=== PATIENT | female | born 1960 | race Caucasian/White ===

== ENCOUNTER 2024-02-17 15:41 | Inpatient (IN) | payer MEDICAID ==
[~2024-02-17] VITALS: Ht 152.4 cm; Wt 79.5 kg
[2024-02-17 16:07] LABS: BASOPHILS # (AUTO) 0.1 X10'3 (0-0.2); BASOPHILS % (AUTO) 0.9 % (0-1); EOSINOPHILS # (AUTO) 0.5 X10'3 (0-0.9); EOSINOPHILS % (AUTO) 4.7 % (0-6); HEMATOCRIT 42.1 % (35.0-45.0); HEMOGLOBIN 13.9 g/dl (12.0-16.0); LYMPHOCYTES # (AUTO) 2.8 X10'3 (1.1-4.8); MEAN CORPUSCULAR HEMOGLOBIN 29.9 PG (27.0-31.0); MEAN CORPUSCULAR VOLUME 90.8 FL (78-98); MEAN PLATELET VOLUME 7.2 FL (7.4-10.4); MONOCYTES # (AUTO) 0.6 X10'3 (0-0.9); MONOCYTES % (AUTO) 5.6 % (2-12); NEUTROPHILS # (AUTO) 7.1 X10'3 (1.8-7.7); NEUTROPHILS % (AUTO) 63.8 % (42-75); PLATELET COUNT 397 X10'3 (140-440); RED BLOOD COUNT 4.64 X10'6 (4.20-5.60); RED CELL DISTRIBUTION WIDTH 14.7 % (11.5-14.5); WHITE BLOOD COUNT 11.2 X10'3 (4.5-11.0)
[2024-02-17 16:35] LABS: ALBUMIN 4.2 G/DL (3.4-5.0); ANION GAP 7 (8-16); BLOOD UREA NITROGEN 14 MG/DL (7-18); BUN/CREATININE RATIO 15.9 (10.0-20.0); CHLORIDE 102 MMOL/L (99-107); CREATININE 0.88 MG/DL (0.40-0.90); GLUCOSE 108 MG/DL (70-104); POTASSIUM 3.6 MMOL/L (3.5-5.1); PRO BRAIN NATRIURETIC PEPTIDE 310 PG/ML (0-125); SODIUM 139 MMOL/L (135-145); TOTAL CARBON DIOXIDE 29.6 MMOL/L (24-32); eCRCL 47 ML/MIN; eGFR 65 ML/MIN
[2024-02-17] MEDS: azithromycin 250mg tablet PO ONE (21:52)
[2024-02-17] MEDS: dexamethasone 4mg tablet PO ONE (21:52)
[2024-02-17 22:03] VITALS: PULSE 93; RESP 17; O2SAT 94
[2024-02-17] MEDS: ipratropium/albuterol 3ml nebule NEB ONE (22:03)
[2024-02-17 22:08] VITALS: PULSE 79; RESP 17; O2SAT 98
[2024-02-17 23:22] VITALS: PULSE 88; RESP 24; O2SAT 97
[2024-02-17] MEDS: albuterol 2.5 MG/3 ML nebule CONTNEB PRN (23:22)
[2024-02-18] VITALS (18 sets, daily range): BP systolic 130–155; BP diastolic 66–77; PULSE 80–129; RESP 12–29; TEMP 97.8–98.3; O2SAT 92–99
[2024-02-18] MEDS ORDERED: potassium Cl 40MEQ/1/2NS 520ml 520 ML IV PRN (01:50)
[2024-02-18] MEDS ORDERED: magnesium sulf-water 4G/100mL 100 ML IV PRN (01:50)
[2024-02-18] MEDS ORDERED: mag hydrox/Alum hydrox/simeth 30ml oral suspension PO PRN (01:50)
[2024-02-18] MEDS ORDERED: ondansetron/PF 4mg/2ml inj IV PRN (01:50)
[2024-02-18] MEDS ORDERED: HYDROcodone/acetaminophen 5mg/325mg tablet PO PRN (01:50)
[2024-02-18] MEDS ORDERED: magnesium sulf-water 2g/50mL 50 ML IV PRN (01:50)
[2024-02-18] MEDS ORDERED: magnesium hydroxide 30ml (MOM) UD suspension PO PRN (01:50)
[2024-02-18] MEDS ORDERED: potassium Cl 20 mEq SR tablet PO PRN ×2 (01:50)
[2024-02-18] MEDS ORDERED: acetaminophen 325mg tablet PO PRN (01:50)
[2024-02-18] MEDS ORDERED: magnesium Cl slow-release 64mg tablet PO PRN (01:50)
[2024-02-18] MEDS ORDERED: albuterol 1.25 MG/3 ML (1/2 strength) nebule NEB PRN (01:55)
[2024-02-18] MEDS: LORazepam 2 mg/ml vial IV ONE (02:03)
[2024-02-18 02:30] LABS: PROTHROMBIN TIME 10.3 SECONDS (9.0-12.0)
[2024-02-18 02:33] LABS: ALANINE AMINOTRANSFERASE 33 U/L (12-78); ALBUMIN 4.1 G/DL (3.4-5.0); ALKALINE PHOSPHATASE 96 IU/L (46-116); ASPARTATE AMINO TRANSFERASE 18 U/L (10-37); BILIRUBIN,DIRECT 0.1 MG/DL (0-0.3); BILIRUBIN,TOTAL 0.3 MG/DL (0.1-1.0); MAGNESIUM 1.9 MG/DL (1.5-2.4); POTASSIUM 3.7 MMOL/L (3.5-5.1); TOTAL PROTEIN 8.2 G/DL (6.4-8.2)
[2024-02-18] MEDS: normal saline 1000ml 1,000 ML IV SCH (02:35)
[2024-02-18 02:36] LABS: HEMOGLOBIN A1C 5.9 % (4.5-6.2)
[2024-02-18] MEDS: ipratropium/albuterol 3ml nebule NEB SCH (03:57)
[2024-02-18] MEDS: LORazepam 2 mg/ml vial IV PRN (04:26)
[2024-02-18] MEDS ORDERED: PARO-141 PO (06:16)
[2024-02-18] MEDS ORDERED: METF-900 PO (06:16)
[2024-02-18] MEDS: heparin, porcine 5000 units/ml vial SQ SCH (07:53)
[2024-02-18] MEDS: CefTRIAXone/D5W-Rocephin 1gm 50 ML IV SCH (07:53)
[2024-02-18] MEDS: nicotine 21mg patch - 24 hr TD SCH (07:53)
[2024-02-18] MEDS: docusate sod 100mg capsule PO SCH (07:53)
[2024-02-18] MEDS: methylPREDNISolone sod succ 125mg/2ml vial IV SCH ×2 (07:54→23:35)
[2024-02-18] MEDS: azithromycin/NS 500mg/250ml 250 ML IV SCH (08:27)
[2024-02-18] MEDS: K and/or MAG REPLACEMENT MC SCH (08:30)
[2024-02-18] MEDS: furosemide 10 MG/1 ML 10ml inj IV ONE (09:10)
[2024-02-18] MEDS ORDERED: morphine 2 MG/ML inj. syringe IV PRN (18:35)
[2024-02-18] MEDS: metFORMIN 500mg tablet PO SCH (21:16)
[2024-02-18] MEDS: PARoxetine 20mg tablet PO SCH (21:21)
[2024-02-19] VITALS (20 sets, daily range): BP systolic 125–157; BP diastolic 71–77; PULSE 76–129; RESP 16–30; TEMP 97.1–99.2; O2SAT 95–99
[2024-02-19 07:08] LABS: BASOPHILS % (AUTO) 0.2 % (0-1); EOSINOPHILS % (AUTO) 0 % (0-6); HEMATOCRIT 37.8 % (35.0-45.0); HEMOGLOBIN 12.5 g/dl (12.0-16.0); LYMPHOCYTES # (AUTO) 1.1 X10'3 (1.1-4.8); LYMPHOCYTES % (AUTO) 8.6 % (21-51); MEAN CORPUSCULAR HEMOGLOBIN 30.6 PG (27.0-31.0); MEAN CORPUSCULAR HGB CONC 33.1 g/dL (33.0-36.5); MEAN CORPUSCULAR VOLUME 92.5 FL (78-98); MEAN PLATELET VOLUME 7.7 FL (7.4-10.4); MONOCYTES # (AUTO) 0.3 X10'3 (0-0.9); MONOCYTES % (AUTO) 2.4 % (2-12); NEUTROPHILS # (AUTO) 11.4 X10'3 (1.8-7.7); NEUTROPHILS % (AUTO) 88.8 % (42-75); PLATELET COUNT 368 X10'3 (140-440); RED BLOOD COUNT 4.09 X10'6 (4.20-5.60); RED CELL DISTRIBUTION WIDTH 14.5 % (11.5-14.5); WHITE BLOOD COUNT 12.8 X10'3 (4.5-11.0)
[2024-02-19 07:25] LABS: ALANINE AMINOTRANSFERASE 24 U/L (12-78); ALBUMIN 3.6 G/DL (3.4-5.0); ALBUMIN/GLOBULIN RATIO 0.9 (1.1-1.5); ALKALINE PHOSPHATASE 80 IU/L (46-116); ANION GAP 11 (8-16); ASPARTATE AMINO TRANSFERASE 14 U/L (10-37); BILIRUBIN,TOTAL 0.2 MG/DL (0.1-1.0); BLOOD UREA NITROGEN 29 MG/DL (7-18); BUN/CREATININE RATIO 29.3 (10.0-20.0); CALCIUM 9.2 MG/DL (8.5-10.1); CHLORIDE 103 MMOL/L (99-107); CHOL/HDL RATIO 2.3 (0.00-4.99); CHOLESTEROL 147 MG/DL (0-200); CREATININE 0.99 MG/DL (0.40-0.90); GLUCOSE 258 MG/DL (70-104); HDL CHOLESTEROL 65 MG/DL (35-60); LDL CHOLESTEROL 69 MG/DL (50-100); MAGNESIUM 2.2 MG/DL (1.5-2.4); POTASSIUM 4.6 MMOL/L (3.5-5.1); SODIUM 141 MMOL/L (135-145); TOTAL PROTEIN 7.5 G/DL (6.4-8.2); TRIGLYCERIDES 73 MG/DL (20-135); eCRCL 42 ML/MIN; eGFR 57 ML/MIN
[2024-02-19] MEDS: furosemide 20 MG/2 ML vial IV SCH (07:48)
[2024-02-19] MEDS ORDERED: DEXTROSE 15 GM of carb/4 tabs (each vial/BOTTLE has 4 tablets) PO PRN ×2 (08:40)
[2024-02-19] MEDS ORDERED: dextrose 50%-water 50ml dispensing syringe IV PRN ×2 (08:40)
[2024-02-19] MEDS ORDERED: glucagon, human recombinant 1mg kit SUBCUT PRN (08:40)
[2024-02-19] MEDS: INSULIN LISPRO 100 UNIT/ML INSULN.PEN MULTI-DOSE SQ SCH (13:06)
[2024-02-19] MEDS: guaiFENesin ER 600mg tablet PO SCH (14:37)
[2024-02-19] MEDS: HYDROcodone/acetaminophen 10/325mg tab PO PRN (19:49)
[2024-02-19] MEDS: acetaminophen 325mg tablet PO PRN (22:12)
[2024-02-20] VITALS (10 sets, daily range): BP systolic 114–147; BP diastolic 59–77; PULSE 88–115; RESP 17–21; TEMP 97.4–97.8; O2SAT 92–99
[2024-02-20 07:06] LABS: PROTHROMBIN TIME 10.1 SECONDS (9.0-12.0)
[2024-02-20 07:11] LABS: BASOPHILS % (AUTO) 0.2 % (0-1); EOSINOPHILS % (AUTO) 0 % (0-6); HEMATOCRIT 36.9 % (35.0-45.0); HEMOGLOBIN 12.2 g/dl (12.0-16.0); LYMPHOCYTES # (AUTO) 1.3 X10'3 (1.1-4.8); LYMPHOCYTES % (AUTO) 9.1 % (21-51); MEAN CORPUSCULAR HEMOGLOBIN 30.4 PG (27.0-31.0); MEAN CORPUSCULAR VOLUME 92.1 FL (78-98); MEAN PLATELET VOLUME 7.8 FL (7.4-10.4); MONOCYTES # (AUTO) 0.4 X10'3 (0-0.9); NEUTROPHILS # (AUTO) 12.3 X10'3 (1.8-7.7); NEUTROPHILS % (AUTO) 87.7 % (42-75); PLATELET COUNT 411 X10'3 (140-440); RED BLOOD COUNT 4.01 X10'6 (4.20-5.60); RED CELL DISTRIBUTION WIDTH 14.7 % (11.5-14.5); WHITE BLOOD COUNT 14.1 X10'3 (4.5-11.0)
[2024-02-20 07:18] LABS: ALANINE AMINOTRANSFERASE 27 U/L (12-78); ALBUMIN 3.5 G/DL (3.4-5.0); ALBUMIN/GLOBULIN RATIO 0.9 (1.1-1.5); ALKALINE PHOSPHATASE 72 IU/L (46-116); ANION GAP 8 (8-16); ASPARTATE AMINO TRANSFERASE 12 U/L (10-37); BILIRUBIN,TOTAL 0.2 MG/DL (0.1-1.0); BLOOD UREA NITROGEN 34 MG/DL (7-18); BUN/CREATININE RATIO 34.3 (10.0-20.0); CALCIUM 9.2 MG/DL (8.5-10.1); CHLORIDE 102 MMOL/L (99-107); CREATININE 0.99 MG/DL (0.40-0.90); GLUCOSE 269 MG/DL (70-104); PHOSPHORUS 4.4 MG/DL (2.3-4.5); SODIUM 139 MMOL/L (135-145); TOTAL CARBON DIOXIDE 29.1 MMOL/L (24-32); TOTAL PROTEIN 7.2 G/DL (6.4-8.2); eCRCL 42 ML/MIN; eGFR 57 ML/MIN
[2024-02-20] MEDS ORDERED: CEFD300C3 PO (10:08)
[2024-02-20] MEDS ORDERED: PRED10TA23 PO (10:08)
[2024-02-20] MEDS ORDERED: IPRA3AMP9 NEB (10:08)
[2024-02-20] MEDS ORDERED: GUAI600T45 PO (10:08)
[2024-02-20] MEDS ORDERED: ALBU1.253 NEB (10:08)
[2024-02-20] MEDS ORDERED: FURO-150 PO (10:08)
[2024-02-21] MEDS ORDERED: GUAI600T45 PO (05:28)
[2024-02-21] MEDS ORDERED: ALPR0.5T8 PO (05:28)
[2024-02-21] MEDS ORDERED: ALBU1.25 NEB (05:28)
[2024-02-21] MEDS ORDERED: FURO-150 PO (05:28)
[2024-02-21] MEDS ORDERED: PRED20TA PO (05:28)
[2024-02-21] MEDS ORDERED: IPRA3AMP31 IH (05:28)
== END 2024-02-20 13:15 | disposition home or self-care (01) | DRG 140 ==
LOC: ER 15:41 → ED HOLD 02-18 01:51 → UNDOADMIN 02-18 01:51 → ED HOLD 02-18 07:38 → PCU 3S 02-18 12:35
PROVIDERS: ADMIT Internal Medicine Critical Care Medicine; ATTEND Internal Medicine
DX: J44.1 Chronic obstructive pulmonary disease with (acute) exacerbation (principal); J96.01 Acute respiratory failure with hypoxia; J06.9 Acute upper respiratory infection, unspecified; E11.9 Type 2 diabetes mellitus without complications; I10 Essential (primary) hypertension; Z20.822 Contact with and (suspected) exposure to COVID-19; F41.9 Anxiety disorder, unspecified; Z98.891 History of uterine scar from previous surgery
CPT/HCPCS: 36415; 71046; 80048; 80053; 80061; 80076; 82800; 82948; 83036; 83605; 83735; 83880; 84100; 84132; 84145; 85025; 85610; 87040; 87081; 87502; 87503; 87811; 93005; 94640; 94664; 94760; 97116; 97161; 97530; 99285; A4615; A7015; G0378; J0456; J0696; J1644; J1815; J1940; J2060; J2919; J7030; J7040

== ENCOUNTER 2024-02-21 00:23 | Emergency (ER) | payer MEDICAID ==
[~2024-02-21] VITALS: Ht 154.9 cm; Wt 79.0 kg
[~2024-02-21 00:23] MED LIST: ALBU1.253 NEB; CEFD300C3 PO; FURO-150 PO; GUAI600T45 PO; IPRA3AMP9 NEB; METF-900 PO; PARO-141 PO; PRED10TA23 PO
[2024-02-21 00:59] VITALS: TEMP 98.4
[2024-02-21] MEDS: midazolam 1 mg/ML 2ml injection IV ONE (01:26)
[2024-02-21] MEDS: normal saline 1000ML IV soln IV ONE (01:54)
[2024-02-21] MEDS: methylPREDNISolone sod succ 125mg/2ml vial IV ONE ×2 (01:54→02:12)
[2024-02-21] MEDS: CefTRIAXone 2gm/D5W 50ml BAG 50 ML IV ONE (01:55)
[2024-02-21 02:00] LABS: BASOPHILS % (AUTO) 0.2 % (0-1); EOSINOPHILS % (AUTO) 0 % (0-6); HEMATOCRIT 39.5 % (35.0-45.0); LYMPHOCYTES # (AUTO) 3.1 X10'3 (1.1-4.8); LYMPHOCYTES % (AUTO) 20.1 % (21-51); MEAN CORPUSCULAR HEMOGLOBIN 30.1 PG (27.0-31.0); MEAN CORPUSCULAR VOLUME 91.5 FL (78-98); MEAN PLATELET VOLUME 7.3 FL (7.4-10.4); MONOCYTES # (AUTO) 1.1 X10'3 (0-0.9); MONOCYTES % (AUTO) 7.3 % (2-12); NEUTROPHILS # (AUTO) 11.1 X10'3 (1.8-7.7); NEUTROPHILS % (AUTO) 72.4 % (42-75); PLATELET COUNT 419 X10'3 (140-440); RED BLOOD COUNT 4.32 X10'6 (4.20-5.60); RED CELL DISTRIBUTION WIDTH 14.3 % (11.5-14.5); WHITE BLOOD COUNT 15.4 X10'3 (4.5-11.0)
[2024-02-21 02:17] LABS: ALANINE AMINOTRANSFERASE 40 U/L (12-78); ALBUMIN/GLOBULIN RATIO 1.1 (1.1-1.5); ALKALINE PHOSPHATASE 77 IU/L (46-116); ANION GAP 10 (8-16); ASPARTATE AMINO TRANSFERASE 21 U/L (10-37); BILIRUBIN,TOTAL 0.3 MG/DL (0.1-1.0); BLOOD UREA NITROGEN 45 MG/DL (7-18); CALCIUM 9.5 MG/DL (8.5-10.1); CHLORIDE 101 MMOL/L (99-107); CREATININE 1.25 MG/DL (0.40-0.90); GLUCOSE 119 MG/DL (70-104); POTASSIUM 4.3 MMOL/L (3.5-5.1); SODIUM 141 MMOL/L (135-145); TOTAL CARBON DIOXIDE 30.1 MMOL/L (24-32); TOTAL PROTEIN 7.8 G/DL (6.4-8.2); eCRCL 35 ML/MIN; eGFR 43 ML/MIN
[2024-02-21 02:25] LABS: BILIRUBIN,DIRECT 0.1 MG/DL (0-0.3); PRO BRAIN NATRIURETIC PEPTIDE 383 PG/ML (0-125)
[2024-02-21] MEDS: ringers solution, lacted 1,000 ML IV ONE (02:51)
[2024-02-21 03:08] LABS: ABG BASE EXCESS -2.2 mmol/L (-2.0-3.0); ABG HCO3 23.4 mmol/L (21.0-28.0); ABG OXYGEN SATURATION 92.5 % (94.0-98.0); ABG PCO2 (T) 42.9 mmHg (32.0-45.0); ABG PH (T) 7.353 (7.350-7.450); ABG PO2 (T) 68.1 mmHg (83.0-108.0); ALLEN'S TEST POSITIVE; FCOHb 0.3 % (0.5-1.5); FHHb 7.5 % (0.0-5.0); FMetHb 0.3 % (0.0-1.5); FO2Hb 91.9 % (94.0-98.0); MODE ROOM AIR; PATIENT TEMPERATURE 36.9; TOTAL HEMOGLOBIN 12.3 G/dl (12.0-16.0)
[2024-02-21] MEDS ORDERED: ALPR0.5T8 PO (05:28)
[2024-02-21] MEDS ORDERED: ALBU1.25 NEB (05:28)
[2024-02-21] MEDS ORDERED: PRED20TA PO (05:28)
[2024-02-21] MEDS ORDERED: IPRA3AMP31 IH (05:28)
[2024-02-21] MEDS ORDERED: FURO-150 PO (05:28)
[2024-02-21] MEDS ORDERED: GUAI600T45 PO (05:28)
[2024-02-21 06:03] VITALS: BP 150/80; PULSE 92; RESP 15; O2SAT 91
== END 2024-02-21 06:38 | disposition home or self-care (01) ==
LOC: ER 00:24
DX: J44.9 Chronic obstructive pulmonary disease, unspecified (principal); E11.9 Type 2 diabetes mellitus without complications; F41.9 Anxiety disorder, unspecified; I10 Essential (primary) hypertension; Z79.899 Other long term (current) drug therapy; Z79.2 Long term (current) use of antibiotics; Z20.822 Contact with and (suspected) exposure to COVID-19
CPT/HCPCS: 36415; 36600; 71045; 80048; 80076; 82803; 83605; 83880; 84145; 85018; 85025; 87040; 87502; 87503; 87811; 93005; 96361; 96365; 96375; 99285; J0696; J2250; J2919; J7030; J7120